=== PATIENT | female | born 1980 | race African-American/Black ===

== ENCOUNTER 2018-11-20 14:56 | Emergency (ER) | payer MEDICAID ==
[~2018-11-20] VITALS: Ht 167.6 cm; Wt 75.0 kg
[2018-11-20 19:33] VITALS: BP 100/68
== END 2018-11-20 20:53 | disposition home or self-care (01) ==
LOC: ER 16:49
DX: S10.83XA Contusion of other specified part of neck, initial encounter (principal); M25.512 Pain in left shoulder; V49.49XA Driver injured in collision with other motor vehicles in traffic accident, initial encounter; Y93.89 Activity, other specified; Y92.410 Unspecified street and highway as the place of occurrence of the external cause
CPT/HCPCS: 99282